=== PATIENT | male | born 2000 | race Caucasian/White ===

== ENCOUNTER 2020-03-09 01:30 | Emergency (ER) | payer BC, SELFPAY ==
[2020-03-09 01:32] VITALS: BP 141/91; PULSE 105; RESP 16; TEMP 36.4; O2SAT 96; BMI 37.3
--- NOTE | 2020-03-09 01:42 | RAD_ITS ---
STUDY: X-RAY - LEFT KNEE REASON FOR EXAM: Male, 20 years old. Posttraumatic lateral knee pain. TECHNIQUE: 4 view(s) of the knee. COMPARISON: None. FINDINGS: Normal visualized distal femur. Normal visualized proximal tibia. There is a minimally displaced fracture through the fibular head. Normal proximal tibiofibular articulation. Normal medial femorotibial compartment. Normal lateral femorotibial compartment. Normal patellofemoral articulation. No knee joint effusion. The soft tissue structures are unremarkable. RAD/Knee 4 or More Views IMPRESSION: Minimally displaced fracture through the fibular head Electronically Signed: Sae Terrazas MD at 2:46 EST Tel , Service support ,
[2020-03-09] MEDS: Ketorolac 15 MG/ML Vial IM (01:50)
--- NOTE | 2020-03-09 01:51 | ED.VIS.GEN ---
History of Present Illness Chief Complaint: Lower Extremity Injury Informant: Patient Narrative: 20 year-old male with no significant past medical history presents with left knee pain. States on the shower and struck the lateral portion of the knee on the bathtub. States he has had pain over the past 4 hours. States it is sharp in nature and worse with movement. Denies any numbness or tingling. Denies any head injury or loss of consciousness. Past Medical History - Allergies and Home Meds Allergies/Adverse Reactions: Allergies No Known Allergies Allergy (Verified 03/09/20 01:31) Primary Care Physician: Maribel Talbot MD [STAFF PHYSICIAN] - Prior records reviewed: Yes Past Medical History: None Surgical History: no surgical history Lives: With Family Smoking Status: Never smoker Alcohol: None Drugs: None Review of Systems General: Denies: Chills, Fever, Sweats Eyes: Denies: Visual changes - bilaterally, Diplopia ENT: Denies: Rhinorrhea, Sore throat Cardiovascular: Denies: Chest pain, Palpitations Respiratory: Denies: Dyspnea, Cough, Dyspnea on exertion Gastrointestinal: Denies: Abdominal pain, Nausea, Vomiting, Diarrhea, Melena, Hematochezia Genitourinary: Denies: Dysuria, Hematuria, Frequency Musculoskeletal: Reports: Arthralgias. Denies: Back pain, Extremity Pain Skin: Denies: Rash, Wounds Neurological: Denies: Headache, Weakness, Numbness Physical Exam Vital Signs/Narrative: Vital Signs Temp Pulse Resp BP Pulse Ox 03/09/20 01:32 97.5 F L 105 H 16 141/91 H 96 Inital Vital Signs reviewed: Yes General: Well nourished, Well developed, No Acute Distress Head: Normocephalic, Atraumatic Eyes: Perrl, EOMI ENT: Moist mucous membranes, No rhinorrhea Neck: Supple, Nontender Cardiovascular: Regular rate, Regular rhythm, No murmurs Respiratory: No distress, CTA bilaterally, Chest nontender Abdomen: Soft, Nontender, Nondistended, Normal bowel sounds Back: Nontender, Normal Inspection Extremities: No edema, - - TTP over the left fibular head. Full range of motion. Strong and palpable popliteal, DP, PT pulses. Skin: Normal color, No rash Neurological: Alert, Oriented x3, Cranial nerves II-XII grossly intact, Normal Strength, Normal Sensation Psychological: Normal affect, Normal Mood Diagnostic/Tx/Re-eval Clinical Impression(s) from Imaging Studies Knee X-Ray 03/09/20 01:42 IMPRESSION: Minimally displaced fracture through the fibular head Electronically Signed: Sae Terrazas MD at 2:46 EST Tel , Service support , - Medical Decision Making Patient appears well and nontoxic. Vital signs within normal limits. Extensor mechanism intact. Patient has evidence of nondisplaced fibular head fracture. Patient will be placed in an Ender wrap and advised on nonweightbearing until he can be seen by orthopedist Dr. Sawant. Patient will be given short course of Percocet. Asked to return for new or worsening symptoms. Patient agreeable and discharged home in stable condition. Impression: 1. Fibular head fracture 2. Mechanical fall ED Disposition - Plan for ED Patient: Disposition: Home or Assisted Living Instructions: ED Fracture, Lower Extremity Prescriptions: Oxycodone HCl/Acetaminophen [Percocet 5/325] 1 tab PO Q6H PRN PRN 3 Days #12 tab PRN Reason: Pain Prescription Printed Referrals: Maribel Talbot MD [STAFF PHYSICIAN] - 1 Day Juan Sawant MD [STAFF PHYSICIAN] - 3-5 Days
[2020-03-09] MEDS: oxyCODONE 5 MG Tablet PO (03:15)
== END 2020-03-09 03:34 | disposition home or self-care (01) ==
PROVIDERS: Emergency Provider Emergency Medicine
DX: S82.832A Other fracture of upper and lower end of left fibula, initial encounter for closed fracture (principal); W22.09XA Striking against other stationary object, initial encounter; Y93.89 Activity, other specified; Y92.002 Bathroom of unspecified non-institutional (private) residence as the place of occurrence of the external cause; Y99.8 Other external cause status
CPT/HCPCS: 73564; 96372; 99284

== ENCOUNTER → 2020-03-15 06:29 | Outpatient (CLI) | payer BC, SELFPAY ==
[2020-03-11 13:25] VITALS: BMI 37.3
--- NOTE | 2020-03-15 06:33 | MRI_ITS ---
STUDY: MRI LEFT KNEE REASON FOR EXAM: Left knee pain after injury about a week ago with proximal fibular fracture. TECHNIQUE: Standardized fat and water weighted pulse sequences were obtained in all 3 orthogonal planes. COMPARISON: Radiographs 03/09/2020. FINDINGS: There is a subtle vertical tear at the periphery of the posterior horn of the medial meniscus (T2 sagittal images 6-8). Normal hyaline cartilage of the medial femorotibial compartment. There are bone contusions of the medial femoral condyle (T2 sagittal images 3-9) and a bone contusion of the anterior aspect of the medial tibial plateau (T2 coronal images 19, 20). Normal medial collateral ligamentous complex (MCL). Normal distal semimembranosus, gracilis and semitendinosus tendons. Normal lateral meniscus. Normal hyaline cartilage of the lateral femorotibial compartment. There are bone contusions of the anterior and posterior aspects of the lateral tibial plateau (T2 sagittal images 19-21). Normal proximal tibiofibular articulation. Normal lateral collateral (fibular) ligament. Normal popliteus tendon. Normal biceps femoris tendon. Normal anterior cruciate ligament (ACL). Normal posterior cruciate ligament (PCL). Normal congruent patellofemoral articulation. Normal hyaline cartilage of the patellofemoral compartment. Normal medial and lateral patellar retinaculum. Normal visualized quadriceps tendon. Normal patellar tendon. Normal Hoffa''s fat pad. There is no joint effusion. There is mild edema in the lateral subcutis adipose space. There is a nondisplaced fracture of the head of the fibula (proton-density coronal images 7-9). MRI/Lower Ext Joint Only (Routine) IMPRESSION: Subtle tear at the periphery of the posterior horn of the medial meniscus. Nondisplaced fracture of the head of the fibula. Bone contusions of the medial femoral condyle, and medial and lateral tibial plateau. No demonstrated anterior cruciate ligament tear. Electronically Signed: Chuy Atkins MD at 8:30 EST Tel , Service support ,
== END ==
PROVIDERS: Referring Provider Orthopaedic Surgery; Visit Provider Orthopaedic Surgery
DX: S89.92XA Unspecified injury of left lower leg, initial encounter (principal); M25.562 Pain in left knee
CPT/HCPCS: 73721

== ENCOUNTER 2020-04-21 05:56 | Day surgery (SDC) | payer BC, SELFPAY ==
[2020-03-11 13:25] VITALS: BMI 37.3
--- NOTE | 2020-04-07 07:35 | HP_ITS ---
I have re-examined the patient. There are no clinical changes since date of exam. Intake Intake Visit Reasons: left leg Accompanied by: Mother Is patient in pain?: Yes Pain scale (1-10): 7 Allergies fig Allergy (Mild, Uncoded 03/18/20 11:52) swelling Medications ibuprofen 200 mg capsule 200 mg PO Q6H PRN 03/18/20 [History Confirmed 03/18/20] PFSH Family History (Updated 03/11/20 @ 13:32 by Farideh Damon) Grandmother Hypertension Diabetes Grandfather Hypertension Diabetes Grandfather CVA (cerebral vascular accident) Hypertension Social History (Updated 03/19/20 @ 08:[address] Christine Ramsay, DO) household members: other details: roommate housing: apartment Smoking Status: Never smoker alcohol intake: never what type of physical activity do you participate in: none do you feel safe at home: Yes HPI left leg: Surgical H&P: Yes Details: Parts of this documentation were recorded by a scribe, this documentation accurately reflects the service provided and the decisions made by me, Dr. Christine Ramsay, 03/18/20 1150. VALERIO FUCHS is a 20 year old M here today for his MRI review. Patient had an MRI on 03/15/2020. Patient reports pain: 7/10 from the pain scale. Denies numbness, tingling or other associated symptoms. has been min wb on leg with cam boot. taking otc antiinflammatory medications. ROS [facility] [place] [facility] Reports system reviewed and no additional complaints, except as docu, Reports joint pain, Denies numbness, Denies stiffness, Denies tingling Neuro No numbness, No tingling Ortho Exam Left Knee Examination: Yes med jt line tenderness, Yes Lat jt line tenderness (prox fib head), Yes Marcus's Test Stability: 1+: Anterior Drawer, 1+: Pilo Patellar Tilt Normal: Yes Assessment & Plan Plan MRI images were reviewed. Educated patient that the MRI shows an ACL tear as well as a meniscus tear. Educated patient that if he only had an ACL tear it would not be a problem but there is also a meniscus tear. Educated that the meniscus is the cushion for the joint and if you lose it, this can lead to arthritis if not repaired. Recommended to wait over a month before surgical repair of the meniscus d/t his fracture which would prefer to heal better prior to surgical intervention. Educated that in the surgical repair they can use a cadaver graft or a graft from the quad tendon. At his age a quad tendon graft is recommended. Educated that he can only do toe touch weight bearing. Educated that it will be another 6 week recovery period after surgery. Educated on the risks of surgery including the risk of Covid-19. Educated that he will be tested for Covid-19 prior to surgery. Follow up 2 weeks post-op or sooner if pain, swelling, numbness or associated symptoms, or concerns develop. Patient has instability on physical exam quite significant Pilo's positive pivot has instability with any kind of twisting and pivoting where the knee gives out on him. Has less pain overall since the initial injury but continued stability and pain. Because of his physical exam and questionable at least partial tearing of the ACL we will address this Intra-Op and discussed visualizing the ACL doing a evaluation under anesthesia and proceeding appropriately. Family is aware. Coding Level of Care Code Off vis,est,level 4 COVID (Procedure Consent) Procedure Criteria Procedure Criteria: Yes Elective The surgeon/proceduralist and patient have discussed in detail the risk of exposure to and/or potential harm posed by the COVID-19 virus with having a surgery/procedure at this time versus the risk of? delaying the surgery/procedure. It is not possible to know either the risk of delaying the surgery or procedure or chance of getting an infection with perfect accuracy, but a joint decision was made between the patient and the surgeon/proceduralist ?to proceed at this time with the scheduled surgery/procedure as indicated on the consent form.
[2020-04-21] VITALS (9 sets, daily range): BP systolic 91–121; BP diastolic 49–76; PULSE 61–83; RESP 16–18; TEMP 36.2–36.8; O2SAT 93–98; BMI 38.5
[2020-04-21] MEDS: Lactated Ringers 1,000 ML 100 ML IV ×2 (06:35→10:05)
[2020-04-21] MEDS: Epinephrine (1 mg/ml) 1 MG/ML VIAL (07:34)
[2020-04-21] MEDS: Cefazolin 2 GM in 0.9% Normal Saline 100 ML IV (07:34)
--- NOTE | 2020-04-21 07:40 | PCM.DC.ORTHO ---
Discharge Diet: No Restrictions - ttwb left leg, 0-30 while seated; ankle Pumps, Ice, Elevate toes above nose, call with concerns, follow up in 5 days with luis fernando for initation of PT and dressing change Discharge Activity: May Not Drive May shower in (days): 1 Ice area for (Minutes): 20 - Every hour while awake. Weight Bearing Status: Weight bearing as tolerated Keep extremity elevated above heart level: Operative Extremity Call your doctor if your incision/area has: Continuous Slow Oozing, Sudden Increased Bleeding, Increased Pain/ Swelling, Increased Redness, Foul Smelling Discharge Call your doctor if you observe: Fever of 101 or Higher, Coldness, Increased Pain, Numbness or Tingling, Change in Color, Calf discomfort Allergies/Adverse Reactions: Allergies fig Allergy (Mild, Uncoded 03/31/20 14:02) swelling Medications to take at Discharge Ondansetron [Zofran] 8 mg PO Q8H PRN PRN #20 tab 04/21/20 Oxycodone [Oxyir] 5 mg PO Q4H PRN PRN 5 Days #60 tab 04/21/20 The following prescriptions were given: Oxycodone [Oxyir] 5 mg PO Q4H PRN PRN 5 Days #60 tab PRN Reason: Pain Transmission Status: Received by [id number] Ondansetron [Zofran] 8 mg PO Q8H PRN PRN #20 tab PRN Reason: Nausea Transmission Status: Received by [id number] Primary Care Physician: Care Physician,No Primary [Primary Care Provider] - Test Results: Test results from this visit will be discussed in further detail at your follow-up appointment, if applicable. Please Follow Up With: Christine Ramsay, DO - [phone]
--- NOTE | 2020-04-21 07:41 | PCM.OPRPT ---
Report of Operation Date of Procedure: 04/21/20 Pre-Operative Diagnosis: left knee partial acl tear, medial meniscus tear Post-Operative Diagnosis: same, rad lateral men tear Surgery/Procedure Performed:: rishabhk, mm repair with 2 reverse curved fasTfix devices, acl repair with arthrex 4.75 swivel lock, plm buttermaker: Mu Amezquita Type of Anesthesia:: General Anesthesiologist: Gabriel Cartagena Specimen's removed: tt-46 mins Estimated Blood Loss (mL): min Fluids Replaced: 1000ml lr Description of Procedure: Preop note Patient is a 20-year-old male had a hyperextension injury to his left knee in the shower also hit the aspect of the knee on falling. He had a proximal fibula fracture as well as instability of his knee and pain on the medial joint line. MRI confirms a medial meniscus tear questionable lateral meniscus tear partial ACL tear is on physical exam he was lax with did have an endpoint. We discussed preoperatively at length risk benefits and alternative surgery were discussed patient does have an endpoint he is still loose he is loose on his other side as well however but he there is a vertical orientation to his anterior bundle which I am concerned that this is a partial tear even of chronic tear patient cannot remember of any other issues or any other injuries however he did have other falls who sustained an injury to his left knee in the past. Risk benefits and alternative surgery discussed with patient. Risk including but not limited to blood loss, blood clot, infection, neurovascular, failure procedure, loss of life and loss of limb. Patient is aware would like to proceed with left knee arthroscopy repair as indicated. We discussed the current risk associated COVID-19. While it is understood that there is a community spread of COVID 19 the risk of loreta COVID-19 while at [facility] is very low, however, the risk cannot be completely mitigated because of the community spread of the disease. We discussed in detail the risk of exposure to and or potential harm posed by the COVID-19 virus with having a surgery/procedure at this time versus the risk of delaying the surgery/procedure. Is not possible to know either the risk of delaying the surgery procedure or chance of getting an infection with perfect accuracy, but a joint decision was made to proceed at this time with a schedule surgery/procedure as indicated on the consent form. Patient was notified that we will need to comply with any screening or testing [facility] wishes to perform or that surgery may be delayed for any positive results. Operative note Patient seen and examined preoperative holding area. Left knee was marked. Patient brought to the operating placed supine on the operating table. Signed, anesthesia, antibiotics were administered. The left knee was prepped and draped in usual sterile technique with a tourniquet around his upper thigh. All bony promises well-padded SCDs placed on his contralateral limb. We then prepped and draped the left knee with usual standard technique. We marked out our bony landmarks for anterolateral anteromedial portal placement. Timeout was performed. We then elevate exsanguinated and tourniquet was raised to a pressure of 200 5075 torr. Then created anterior lateral border with an 11 blade. We began our diagnostic arthroscopy. We visualized the patellofemoral joint. There is intact there were no loose spinal loose pieces in the anterior lateral anteromedial recesses. The moved to the medial joint line. Created an anterior order and direct visualization removed the synovitis that was anterior medial anterior lateral resecting or obstructing our view. There was an interstitial tear of his is his mid body of his medial meniscus was gently debrided and then we placed to reverse curved FasT-Fix devices in standard technique. We then reinserted our scope and we did have a good stable meniscus. We then moved to the ACL PCL. Please note that preoperatively after an anesthesia was induced we did perform an evaluation under anesthesia. The patient was Chaparro Mishra is some chronic tearing he had with his anterior bundle was torn superiorly and and scarred him however his posterior bundle is intact in appropriate anatomic location. We elected the different treatment options and at this point because of his looseness on exam and the fact that he is little bit more vertically oriented on his anterior bundle we decided to preserve the ACL repair. We placed #2 suture tape in a crisscross fashion starting from the midportion of the ACL proximally we then drilled a 2.9 drill into the lateral aspect of the notch then over tapped with a 475 and then used the 2 ends of the suture tape through a swivel lock and this was placed through the predrilled hole after it was tapped. This recreated our anatomic footprint of our anterior bundle. We then moved to the lateral aspect there is a radial tear of the lateral meniscus which was gently debrided back with a shaver and the rest of the meniscus was intact and stable to probing. Irrigate the knee with copious amounts of sterile saline. Tourniquet was deflated for total working time of 46 minutes. Patient taught procedure well no complication transferred recovery room in stable condition. Patient may receive a postop regional block pending upon pain Postoperative note Toe-touch weightbearing left leg Elevate toes above nose Ice [facility] pharmacy has prescriptions Call with increased pain numbness tingling further issues arise This note was generated with [employer] dictation software. It may contain incorrect words, spelling, and punctuation that were not noted in checking the note before signing.
[2020-04-21] MEDS: Mupirocin Ointment 22gm Tube 1 APPLIC (08:55)
== END 2020-04-21 11:13 | disposition home or self-care (01) ==
LOC: SDC 06:00 → AC 06:01
PROVIDERS: Referring Provider Orthopaedic Surgery; Visit Provider Orthopaedic Surgery
PROC: (CPT 29880; principal; 2020-04-21 07:10)
DX: S83.512A Sprain of anterior cruciate ligament of left knee, initial encounter (principal); S83.242A Other tear of medial meniscus, current injury, left knee, initial encounter; Z20.822 Contact with and (suspected) exposure to COVID-19; X50.1XXA Overexertion from prolonged static or awkward postures, initial encounter; Y93.E1 Activity, personal bathing and showering; Y92.002 Bathroom of unspecified non-institutional (private) residence as the place of occurrence of the external cause; Y99.8 Other external cause status
CPT/HCPCS: 01400; 29880; 29888; 87426; C9803; J7120; J2405

== ENCOUNTER 2020-05-12 11:14 | Outpatient (RCR) | payer BC, SELFPAY ==
--- NOTE | 2020-05-12 12:53 | HP.PTEVAL_ITS ---
Patient's Visit Information VALERIO FUCHS is a 20 year old M referred to Physical Therapy by KATHARINA Jacques with a diagnosis of L knee scope ACL reconstruction meniscus repai. Date of Evaluation: 05/12/20 Physical Therapist: Paola Carvajal DPT - Visit Plan Frequency: 2x /Week Duration: 6 Weeks Plan: Pt to follow up with PT after cleared for WB, given HEP at IE (quad set, bolster ext, 4 way SLR, calf and HS stretch with towel) encouraged to call with questions and concerns. - Subjective DOS: 04/21 about 3 weeks ago on L left ACL and menicus. Pt was in shower and slipped on conditioner and hit lateral tibia on tub. Pain: not bad at all, first thing in the morning, goes away after getting up. some numbness in medial thigh majority of the time. pain felt in joint line or posterior to knee. currently 2-3/10. worst is 3/10. sleep: rests leg on pillow and will wake up with it moved. able to sleep through the night no problems now. lives with a roommate, and has girlfriend to help around the house. 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 PMHx: broke collar bone when was freshman in high school. Meds: pain meds but didnt need to take any - Objective Posture: FH,RS, able to correct with cues but unable to maintain. gait: NWB on L with crutches with TROM brace. Girth: patellar girth: 52cm. 6' above: 54cm above pants. ROM knee: 4-40 degrees. flexibilty: calf moderate, HS severe. strength: hip: L:4-/5 R: 4+/5 in all planes. *NWB- not tested SLS, stairs, HR/TR due to restrictions - Goals Goal 1:: Pt will be I with HEP and progression Goal Time Frame: 4-6 Weeks Goal 2:: Pt ambulation with proper gait mechanics and weight weight shift in order to perform I fucntional mobility (as per protocol) Goal Time Frame: 4-6 Weeks Goal 3:: Pt will demonstrate improved knee ROM to 0-130 as per protocol in order to peform I ADLS. Goal Time Frame: 4-6 Weeks Goal 4:: Pt will demonstrate 1cm or less of girth at 6 above patella in order to perform functional mobility. Goal Time Frame: 4-6 Weeks - Rehabilitation Potential Physical Therapy Diagnosis: Pt presents with decreased ROM, strength, flexibilty, gait mechanics and functional mobility secondary to ACL and meniscus repair. Rehabilitation Potential: Good - Anticipated Interventions Patient/Client Instruction: Educate patient on: Plan of Care For the Purpose of:: To improve muscle performance and motor function Therapeutic Exercise to Include: Strength training, Endurance training, Balance training, Coordination, Body mechanics, Postural training, Flexibilty training, Gait and locomotor training, Passive ROM, Active ROM For the Purpose of:: To improve performance and independence with ADL's Assistive Devices: Crutches Other electric stimulation: Yes Cryotherapy (ice pack, ice massage): Yes Thermo therapy (hot pack): Yes Ultrasound (thermal/non thermal): No Thank you for the opportunity to evaluate your patient. For Medicare and Medicare HMO plans, please review the plan of care and approve it. It will need to be FAXED BACK to us at [phone] for Medicare purposes. For Medicare only, by signing this I certify the plan of care. Please let me know if there are questions or concerns regarding this plan of care. Physician Signature: Date:
--- NOTE | 2020-08-05 10:24 | HP.PT.NRP ---
VALERIO FUCHS was seen in my office for initial evaluation on 05/12/20. The following Plan of Care was established for this patient: Initial Frequency: 2x /Week Initial Duration: 6 Weeks Patient/Client Instruction: Educate patient on: Plan of Care For the Purpose of:: To improve muscle performance and motor function Therapeutic Exercise to Include: Strength training, Endurance training, Balance training, Coordination, Body mechanics, Postural training, Flexibilty training, Gait and locomotor training, Passive ROM, Active ROM For the Purpose of:: To improve performance and independence with ADL's Assistive Devices: Crutches Other electric stimulation: Yes Cryotherapy (ice pack, ice massage): Yes Thermo therapy (hot pack): Yes Ultrasound (thermal/non thermal): No This patient was last seen in our office . Pertinent comments regarding their Physical therapy will appear below: Patient has not attended PT in over 30 days, appropriate for d/c and return to MD for further evaluation as needed. At this point I will be discontinuing this patient from physical therapy. I would be happy to see this patient again in the future if found appropriate by the physician. Thank you! ROBERT RodríguezT
== END 2020-05-12 19:00 | disposition home or self-care (01) ==
LOC: PT 11:14
PROVIDERS: Referring Provider Physician Assistant; Visit Provider Physician Assistant
DX: Z98.890 Other specified postprocedural states (principal)
CPT/HCPCS: 97161; 97530

== ENCOUNTER 2020-09-26 15:51 | Emergency (ER) | payer BC, SELFPAY ==
[2020-09-26 15:52] VITALS: BP 157/80; PULSE 87; PULSE 88; RESP 18; TEMP 36.9; O2SAT 98; BMI 39.6
[2020-09-26 15:58] VITALS: O2SAT 100
--- NOTE | 2020-09-26 16:06 | RAD_ITS ---
STUDY: X-RAY - RIGHT ANKLE REASON FOR EXAM: Male, 20 years old. injury TECHNIQUE: 3 view(s) of the ankle. COMPARISON: None. FINDINGS: An acute oblique fractures present in the proximal aspect of the medial malleolus with minimal displacement. An acute transverse fractures also present across the proximal aspect of the lateral malleolus with minimal cortical offset. Normal visualized distal tibia and fibula. Normal tibiotalar articulation and ankle mortise. Normal visualized talus and calcaneus. The visualized subtalar, talonavicular, calcaneocuboid and tarsal articulations are normal. The soft tissue structures are unremarkable. RAD/Ankle min 3 Views IMPRESSION: 1. Acute fractures of the medial and lateral malleoli Electronically Signed: Louie Blanchard MD at 16:40 EDT , Service support ,
--- NOTE | 2020-09-26 16:06 | RAD_ITS ---
STUDY: X-RAY CHEST REASON FOR EXAM: Male, 20 years old. injury TECHNIQUE: Single AP portable view of the chest. COMPARISON: None. FINDINGS: The lungs are clear and expanded. There is no demonstrated pleural abnormality. Normal size heart. Normal mediastinum and tia. Normal visualized pulmonary arteries. Normal visualized aortic arch and descending thoracic aorta. Normal visualized thoracic spine. Normal visualized ribs, clavicles, and shoulders. There is no demonstrated abnormality of the visualized soft tissue structures of the upper abdomen. RAD/Chest 1 View (Portable) IMPRESSION: Normal x-ray examination of the chest. Electronically Signed: Louie Blanchard MD at 16:41 EDT , Service support ,
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
[2020-09-26] MEDS: HYDROcodone Bitartrate/Apap 5/325 Tablet PO (16:51)
[2020-09-26 17:44] VITALS: BP 141/85; PULSE 86; RESP 16; O2SAT 98
== END 2020-09-26 17:52 | disposition home or self-care (01) ==
PROVIDERS: Emergency Provider Emergency Medicine
DX: S82.841A Displaced bimalleolar fracture of right lower leg, initial encounter for closed fracture (principal); S20.219A Contusion of unspecified front wall of thorax, initial encounter; F17.290 Nicotine dependence, other tobacco product, uncomplicated; V43.52XA Car driver injured in collision with other type car in traffic accident, initial encounter; Y93.I9 Activity, other involving external motion; Y92.410 Unspecified street and highway as the place of occurrence of the external cause; Y99.8 Other external cause status
CPT/HCPCS: 29515; 71045; 73610; 99285

== ENCOUNTER 2020-10-07 12:28 | Day surgery (SDC) | payer BC, SELFPAY ==
[2020-10-07] VITALS (8 sets, daily range): BP systolic 121–147; BP diastolic 68–93; PULSE 69–107; RESP 16; TEMP 35.8–36.7; O2SAT 93–98; BMI 39.9
[2020-10-07] MEDS: Lactated Ringers 1,000 ML 100 ML IV ×2 (12:15→15:30)
[2020-10-07 13:02] LABS: Absolute Lymphocyte Count 1.39 X10^3/uL (0.83-4.51); Absolute Neutrophil Count 3.3 X10^3/uL (2.0-7.7); Basophil# 0.07 X10^3/uL; Basophil% 1.3 % (0-1); Eosinophil# 0.08 X10^3/uL; Eosinophils% 1.5 % (0-5); Hematocrit 42.1 % (40-54); Hemoglobin 14.3 g/dL (13.0-16.5); Lymphocyte # 1.39 X10^3/ul (0.83-4.51); Lymphocyte % 25.5 % (19-41); Mean Corpuscular Hgb 30.1 pg (27.0-32.0); Mean Corpuscular Volume 88.6 fL (80-94); Mean Platelet Vol. 10.1 fl (6.2-12.0); Monocyte# 0.57 X10^3/uL; Monocyte% 10.5 % (0-10); NRBC Flagged by Analyzer 0 % (0-5); Neutrophil # 3.31 X10^3/uL (2.7-7.7); Neutrophil % 60.6 % (47-70); Platelet Count 318 K/mm3 (150-450); RBC Distribution Width CV 12.3 % (11.6-14.6); RBC Distribution Width SD 40.2 fl (35.1-43.9); Red Blood Count 4.75 M/mm3 (4.6-6.2); White Blood Count 5.5 K/mm3 (4.4-11.0)
[2020-10-07 13:17] LABS: ALB/GLOB Ratio 0.9 RATIO (0.9-2.4); AST(SGOT) 63 U/L (15-37); Alanine Aminotransfer ALT/SGPT 126 U/L (16-61); Albumin, Serum 3.7 g/dL (3.2-5.0); Alkaline Phosphatase 79 U/L (45-117); Anion Gap 2 (5-15); BUN 11 mg/dL (7-18); BUN/Creat Ratio 12.1 RATIO (10-20); Calcium,Total 9.1 mg/dL (8.5-10.1); Chloride 106 mmol/L (98-107); Creatinine, Serum 0.91 mg/dL (0.70-1.30); EST Glomerular Filtration Rate 113 mL/min (>60); Est Glom Filt Rate - Afr Amer 136 mL/min (>60); Globulin 3.9 g/dL (2.2-4.2); Glucose 91 mg/dL (74-106); Potassium 4.1 mmol/L (3.5-5.1); Protein, Total 7.6 g/dL (6.4-8.2); Sodium Level 137 mmol/L (136-145)
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
--- NOTE | 2020-10-07 13:35 | EX.PCM.DISCH ---
Discharge Instructions Diet Discharge Diet: No restrictions Activity Discharge Activity: Use Crutches Ice area for (Minutes): 15 Weight Bearing Status: No weight bearing Keep extremity elevated above heart level: Operative Extremity Additional Activity Instructions:: Rest, ice, elevate operative extremity Dressing / Incision Call your doctor if your incision/area has: Sudden Increased Bleeding, Increased Pain/ Swelling, Foul Smelling Discharge and Swelling at the incision site Call your doctor if you observe: Fever of 101 or Higher, Numbness or Tingling, Shortness of breath, Chest pain, Calf discomfort and Uncontrolled pain Change Dressing in: leave in place till F/U Remove Dressing in: do not remove dressing Cleanse incision/area with: Do not get Incision Wet Follow Up Care Please Follow Up With: Lulu La DPM When: 1 week Test Results: Test results from this visit will be discussed in further detail at your follow-up appointment, if applicable. Discharge Plan Admission Primary Reason for Your Visit: right ankle fracture surgery Attending Provider: Lulu La Primary Care Provider: Care Physician,No Primary Instructions Patient Instructions: Ankle Fracture ORIF Discharge Orders/Prescriptions Prescriptions: New oxycodone-acetaminophen 5-325 mg tablet 1 tab PO Q8H PRN (Reason: pain) 7 Days Qty: 28 RF: 0 No Action hydrocodone-acetaminophen [hydrocodone-acetaminophen] 1 TABLET tablet 1 tab PO Q6H PRN PRN (Reason: Pain) 3 Days Qty: 12 RF: 0 Referrals / Follow Up: Lulu La DPM [STAFF PHYSICIAN] - Care Physician,No Primary [Primary Care Provider] - Disposition Disposition (needs filled in before D/C Order can be placed): Home, Self Care
--- NOTE | 2020-10-07 14:00 | RAD_ITS ---
STUDY: X-RAY - RIGHT ANKLE REASON FOR EXAM: Male, 20 years old. FX TECHNIQUE: 3 view(s) of the ankle. COMPARISON: Comparison is made with prior examination dated 09/26/2020. FINDINGS: Intraoperative imaging provided for ORIF of the medial malleolar fracture. There is good alignment. RAD/Ankle min 3 Views IMPRESSION: Intraoperative imaging provided for ORIF of the medial malleolar fracture. There is good alignment. Electronically Signed: Zeeshan Cisneros MD at 15:19 EDT , Service support ,
--- NOTE | 2020-10-07 16:56 | RAD_ITS ---
STUDY: X-RAY - RIGHT ANKLE REASON FOR EXAM: Male, 20 years old. Post op TECHNIQUE: 3 view(s) of the ankle. COMPARISON: Comparison is made with prior examination dated 09/26/2020. FINDINGS: Normal visualized distal tibia and fibula. The patient is status post open reduction and internal fixation of the medial malleolar fracture utilizing 2 screws. There is good alignment. Stable nondisplaced transverse fracture of the lateral malleolus. Normal tibiotalar articulation and ankle mortise. Normal visualized talus and calcaneus. The visualized subtalar, talonavicular, calcaneocuboid and tarsal articulations are normal. Soft tissue swelling. RAD/Ankle min 3 Views IMPRESSION: The patient is status post ORIF of the medial malleolar fracture utilizing 2 screws. There is good alignment. Stable transverse fracture of the lateral malleolus. Soft tissue swelling. Electronically Signed: Zeeshan Cisneros MD at 15:20 EDT , Service support ,
[2020-10-07] MEDS: oxyCODONE 5 MG Tablet PO (17:35)
[2020-10-07] MEDS: Acetaminophen 325 MG Tablet PO (17:36)
== END 2020-10-07 18:21 ==
LOC: SDC 12:29 → AC 12:29
PROVIDERS: Referring Provider Podiatrist Foot & Ankle Surgery; Visit Provider Podiatrist Foot & Ankle Surgery
PROC: (CPT 27766; principal; 2020-10-07 13:40)
DX: S82.841A Displaced bimalleolar fracture of right lower leg, initial encounter for closed fracture (principal); F17.290 Nicotine dependence, other tobacco product, uncomplicated; V49.9XXA Car occupant (driver) (passenger) injured in unspecified traffic accident, initial encounter; Y93.I9 Activity, other involving external motion; Y92.410 Unspecified street and highway as the place of occurrence of the external cause; Y99.8 Other external cause status
CPT/HCPCS: 27766; 73610; 76000; 80053; 85025; 87426; C1713; C9803; J2405

== ENCOUNTER → 2020-11-10 10:16 | Outpatient (CLI) | payer BC, SELFPAY ==
[2020-11-10 10:03] VITALS: BMI 39.9
[2020-11-10 12:30] LABS: Cholesterol 158 mg/dL (200); High Density Lipoprotein 42 mg/dL; Triglycerides 179 mg/dL; Very Low Density Lipoprotein 36 mg/dL (5-40)
== END ==
PROVIDERS: PCP Internal Medicine; Referring Provider Internal Medicine; Visit Provider Internal Medicine
DX: E66.01 Morbid (severe) obesity due to excess calories (principal)
CPT/HCPCS: 36415; 80061

== ENCOUNTER 2020-11-20 16:34 | Emergency (ER) | payer BC, SELFPAY ==
[2020-11-20 16:35] VITALS: BP 123/64; PULSE 81; RESP 22; TEMP 36.6; O2SAT 96; BMI 42.0
--- NOTE | 2020-11-20 17:01 | EKG12_ITS ---
Test Reason : SYNCOPE Blood Pressure : / mmHG Vent. Rate : 081 BPM Atrial Rate : 081 BPM P-R Int : 142 ms QRS Dur : 086 ms QT Int : 386 ms P-R-T Axes : 040 050 028 degrees QTc Int : 448 ms Normal sinus rhythm Normal ECG Confirmed by SERENA CORRALES, GABRIELA ([id number]), brands editor LAKESHA NICOLE ([id number]) on 11/24/2020 9:01:26 AM Referred By: SEBASTIAN Confirmed By:GABRIELA LYONS MD
[2020-11-20] MEDS: 0.9% Normal Saline 1,000 ML 1000 ML IV (17:17)
--- NOTE | 2020-11-20 17:28 | RAD_ITS ---
STUDY: X-RAY CHEST REASON FOR EXAM: Male, 20 years old. Syncope TECHNIQUE: Single AP portable view of the chest. COMPARISON: 09/26/2020 FINDINGS: The lungs are clear and expanded. There is no demonstrated pleural abnormality. Normal size heart. Normal mediastinum and tia. Normal visualized pulmonary arteries. Normal visualized aortic arch and descending thoracic aorta. Normal visualized thoracic spine. Normal visualized ribs, clavicles, and shoulders. There is no demonstrated abnormality of the visualized soft tissue structures of the upper abdomen. RAD/Chest 1 View (Portable) IMPRESSION: Normal x-ray examination of the chest. Electronically Signed: Dave Zamorano MD at 17:58 EDT Tel , Service support ,
[2020-11-20 17:31] VITALS: BP 116/95; BP 121/74; BP 131/93; PULSE 106; PULSE 74; PULSE 86
[2020-11-20 17:32] LABS: Absolute Lymphocyte Count 1.68 X10^3/uL (0.83-4.51); Absolute Neutrophil Count 5.8 X10^3/uL (2.0-7.7); Basophil# 0.03 X10^3/uL; Basophil% 0.4 % (0-1); Eosinophil# 0.04 X10^3/uL; Eosinophils% 0.5 % (0-5); Hematocrit 51.9 % (40-54); Hemoglobin 17.7 g/dL (13.0-16.5); Lymphocyte # 1.68 X10^3/ul (0.83-4.51); Mean Corp Hgb Conc 34.1 g/dL (32-36); Mean Corpuscular Hgb 30.6 pg (27.0-32.0); Mean Corpuscular Volume 89.6 fL (80-94); Mean Platelet Vol. 9.9 fl (6.2-12.0); Monocyte# 0.37 X10^3/uL; Monocyte% 4.6 % (0-10); NRBC Flagged by Analyzer 0 % (0-5); Neutrophil # 5.83 X10^3/uL (2.7-7.7); Platelet Count 394 K/mm3 (150-450); RBC Distribution Width CV 12.5 % (11.6-14.6); RBC Distribution Width SD 40.5 fl (35.1-43.9); Red Blood Count 5.79 M/mm3 (4.6-6.2)
--- NOTE | 2020-11-20 17:44 | EDS_ITS ---
HPI History of Present Illness Chief Complaint: Syncope Informant: patient Onset/Context/Timing Onset: Today Context: Sudden Onset Timing: Continuous Quality: Shakiness Location: Generalized Worsened by: Nothing Relieved by: Cold towels Narrative Narrative: Patient presents with a near syncopal episode that occurred today. Patient states he started developing hives after he put lotion on his hands. Patient has never used that lotion in the past. Patient states he never uses lotions. Patient states he took some Benadryl for the hives. Patient states he was going to get into the shower when he started feeling lightheaded. Patient sat down and started to feel better. Patient stood up again and started feeling lightheaded like he was going to pass out. Patient sat back down and could feel his vision go black. Patient states he can still hear things around him and denies complete loss of consciousness. Patient denies any palpitations or chest pain. Patient denies any shortness of breath. Currently, the patient just feels shaky all over. Patient states his symptoms started to improve when they put cold towels on his back. [facility] Medical History Elevated liver enzymes History of fibula fracture History of torn meniscus of knee Morbid obesity Smoker Wears glasses Home Medications NK 11/10/20 [History Last Taken Unknown] Allergy/AdvReac Type Severity Reaction Status Date / Time fig Allergy Mild swelling Uncoded 11/10/20 10:01 Family History Grandmother Hypertension Diabetes Grandfather Hypertension Diabetes Grandfather CVA (cerebral vascular accident) Hypertension Surgical History History of repair of anterior cruciate ligament of left knee Social History household members: other details: roommate housing: apartment current occupational status: employed current occupation: [employer] Smoking Status: Current every day smoker tobacco type: e-cigarettes alcohol intake: never what type of physical activity do you participate in: none do you feel safe at home: Yes ROS ROS ED Constitutional Constitutional ED: Denies chills or fever(s) Eyes Eyes: Reports blurry vision; Denies diplopia ENT ENT ED: Denies rhinorrhea or sore throat Cardiovascular Cardiovascular: Denies chest pain or palpitations Respiratory/Chest Respiratory/Chest: Denies cough or dyspnea Gastrointestinal Gastrointestinal: Denies nausea or vomiting Genitourinary Genitourinary ED: Denies dysuria or hematuria Musculoskeletal Musculoskeletal: Denies back pain or neck pain Integumentary Reports rash; Denies abscess Neurologic Neurologic: Denies headache(s) or weakness Allergic/Immunologic Allergic/Immunologic ED: Reports urticaria; Denies mouth swelling or tongue sw elling EXAM Physical Exam Const Vital Signs: 11/20/20 16:35 11/20/20 17:07 11/20/20 17:31 Temperature 97.8 F Temperature Source Oral Pulse Rate 81 Pulse Rate [Lying] 74 Pulse Rate [Sitting] 86 Pulse Rate [Standing] 106 H Respiratory Rate 22 H Respiratory Pattern Normal Blood Pressure 123/64 H Blood Pressure [Lying] 121/74 H Blood Pressure [Sitting] 131/93 H Blood Pressure [Standing] 116/95 H Blood Pressure Mean 83 Blood Pressure Mean [Lying] 89 Blood Pressure Mean [Sitting] 105 Blood Pressure Mean [Standing] 102 Pulse Ox 96 Oxygen Delivery Method Room Air 11/20/20 18:48 Temperature Temperature Source Pulse Rate 74 Pulse Rate [Lying] Pulse Rate [Sitting] Pulse Rate [Standing] Respiratory Rate 16 Respiratory Pattern Blood Pressure 117/74 Blood Pressure [Lying] Blood Pressure [Sitting] Blood Pressure [Standing] Blood Pressure Mean 88 Blood Pressure Mean [Lying] Blood Pressure Mean [Sitting] Blood Pressure Mean [Standing] Pulse Ox 96 Oxygen Delivery Method Room Air Positive well nourished, well developed and obese General Appearance ED: well developed Nutritional Appearance: obese HEENT Reports moist mucous membranes Eyes PERRL and EOMs intact bilaterally Neck supple and no JVD Chest Wall inspection of chest normal and palpation of chest normal Resp normal respiratory effort and clear to auscultation bilaterally Cardio regular rate and regular rhythm GI normal to inspection, nondistended, normoactive bowel sounds and non-tender Palpation: soft Neuro oriented x3, CN's II-XII intact bilaterally and no sensory deficits noted Sensorium / Orientation: alert Motor Exam: strength 5/5 throughout Psych mental status grossly normal Skin Skin Narrative: There is a diffuse urticarial rash noted. There are no vesicles or pustules noted. There are no petechia noted. There is no involvement of mucous membranes. Oropharynx is clear. Airway is patent. MDM MDM MDM Narrative Medical decision making narrative: EKG was obtained. On my interpretation, it showed a normal sinus rhythm with a rate of 81. CO interval, QRS interval, and QTc intervals were all normal. Mamou was normal. There are no acute ST or T wave changes. Portable 1 view chest x-ray was obtained. On my interpretation, lung palmer are clear. There is normal cardiac silhouette. Bony thorax is normal. There is no acute process noted. Radiologist also interpreted the x- ray and agrees. CBC and comprehensive metabolic profile were obtained were within normal limits. High-sensitivity troponin was normal. Patient is feeling better on reevaluation. Patient's urticaria has completely resolved. Patient was instructed to follow-up with his primary care physician in 5 to 7 days. Patient understood and was agreeable with the plan. All questions were answered. Lab Data Attestation: I reviewed the patient's lab results. Labs: Laboratory Results - last 24 hr 11/20/20 11/20/20 17:15 17:15 WBC 8.0 RBC 5.79 Hgb 17.7 H Hct 51.9 MCV 89.6 MCH 30.6 MCHC 34.1 RDW Std Deviation 40.5 RDW Coeff of Ross 12.5 Plt Count 394 MPV 9.9 Immature Gran % (Auto) 0.500 Neut % (Auto) 73.0 H Lymph % (Auto) 21.0 [place] % (Auto) 4.6 Eos % (Auto) 0.5 Baso % (Auto) 0.4 Absolute Neuts (auto) 5.8 Absolute Lymphs (auto) 1.68 Nucleated RBC % 0 Sodium 137 Potassium 3.8 Chloride 99 Carbon Dioxide 26.0 Anion Gap 12 BUN 15 Creatinine 0.96 Estim Creat Clear Calc 126.74 Est GFR (MDRD) Af Amer 127 Est GFR (MDRD) Non-Af 105 BUN/Creatinine Ratio 15.6 Glucose 126 H Calcium 9.1 Total Bilirubin 0.80 AST 116 H ALT 255 H Alkaline Phosphatase 71 Troponin I High Sens 6 Total Protein 8.1 Albumin 4.2 Globulin 3.9 Albumin/Globulin Ratio 1.1 Radiography Diagnostic Testing: Radiology Impression Chest X-Ray 11/20/20 17:28 IMPRESSION: Normal x-ray examination of the chest. Electronically Signed: Dave Zamorano MD at 17:58 EDT Tel , Service support , EKG Initial EKG: Attestation: I personally reviewed and interpreted this EKG as follows: Interpretation: Sinus Rhythm (81) and No Acute Injury Pattern Discharge Plan Triage Chief Complaint: Syncope ED Provider: Castillo Mcmahon Dx/Rx/DC Orders Clinical Impression: Syncope and collapse Instructions: ED Near-Fainting, Uncertain Cause Prescriptions: No Action NK RF: 0 Primary Care Provider: Chari Funk Referrals: Chari Funk MD [Primary Care Provider] - 3-5 Days Disposition Disposition: Home, Self Care
[2020-11-20 17:59] LABS: ALB/GLOB Ratio 1.1 RATIO (0.9-2.4); AST(SGOT) 116 U/L (15-37); Alanine Aminotransfer ALT/SGPT 255 U/L (16-61); Albumin, Serum 4.2 g/dL (3.2-5.0); Alkaline Phosphatase 71 U/L (45-117); Anion Gap 12 (5-15); BUN 15 mg/dL (7-18); BUN/Creat Ratio 15.6 RATIO (10-20); Calcium,Total 9.1 mg/dL (8.5-10.1); Chloride 99 mmol/L (98-107); Creatinine, Serum 0.96 mg/dL (0.70-1.30); EST Glomerular Filtration Rate 105 mL/min (>60); Est Glom Filt Rate - Afr Amer 127 mL/min (>60); Estimated Creatinine Clearance 126.74 ml/min; Globulin 3.9 g/dL (2.2-4.2); Glucose 126 mg/dL (74-106); Potassium 3.8 mmol/L (3.5-5.1); Protein, Total 8.1 g/dL (6.4-8.2); Sodium Level 137 mmol/L (136-145); Troponin-I HS 6 pg/mL (3.0-78.0)
[2020-11-20 18:48] VITALS: BP 117/74; PULSE 74; RESP 16; O2SAT 96
[2020-11-20 20:27] VITALS: BP 107/70; PULSE 71; PULSE 72; RESP 16; O2SAT 97
== END 2020-11-20 20:31 | disposition home or self-care (01) ==
PROVIDERS: Emergency Provider Emergency Medicine; PCP Internal Medicine
DX: R55 Syncope and collapse (principal); E66.01 Morbid (severe) obesity due to excess calories; R42 Dizziness and giddiness
CPT/HCPCS: 71045; 80053; 84484; 85025; 93005; 96360; 96361; 99285; J7030; A4216

== ENCOUNTER → 2020-12-30 | Outpatient (CLI) | payer BC, SELFPAY ==
[2020-12-30 11:48] LABS: Bacteria 0 SEEN /hpf (None Seen); Mucous, Urine 0 SEEN /hpf (<or=2+); Red Blood Cells-Urine 0 SEEN /hpf (0-5); White Blood Cells 0 SEEN /hpf (0-5)
[2020-12-30 15:28] LABS: Color, Urine Yellow (Yellow); Glucose, Dipstick Normal (Normal); Ketone-Dipstick Negative (Negative); Leukocyte Esterase-Dipstick Negative /ul (Negative); Nitrite-Dipstick Negative (Negative); Occult Blood-Urine Negative /ul (Negative); Protein-Dipstick Negative (Negative); Specific Gravity, Urine 1.025 (1.002-1.030); Urine Bilirubin Dipstick Negative (Negative); Urine Clarity Clear (Clear); Urine Urobilinogen Normal (Normal)
[2020-12-30 15:40] LABS: Squamous Epithelial Cells - UA 0-5 SEEN /hpf (0-5)
[2020-12-30 17:09] LABS: Chlamydia Trachomatis by PCR Negative (Negative); Neisserai gonorrhoeae by PCR Negative (Negative)
[2020-12-30 17:10] LABS: Probe Check PASS; Sample Adequacy Control PASS; Specimen Processing Control PASS
== END | disposition home or self-care (01) ==
LOC: LABSPEC 11:47
PROVIDERS: PCP Internal Medicine; Referring Provider Nurse Practitioner Family; Visit Provider Nurse Practitioner Family
DX: Z20.2 Contact with and (suspected) exposure to infections with a predominantly sexual mode of transmission (principal); Z72.51 High risk heterosexual behavior
CPT/HCPCS: 81001; 87491; 87591